=== PATIENT | female | born 1940 | race Caucasian/White ===

== ENCOUNTER 2017-06-11 08:20 | Inpatient (IN) | payer MEDICARE, BC ==
[~2017-06-11 08:20] MED LIST: Sodium Chloride 0.9% 1,000 ML BAG ONE; Sodium Chloride 0.9% 100 ML BAG ONE
--- NOTE | 2017-06-11 09:07 | RAD ---
PORTABLE CHEST: History: Fever. Comparison: 07-29-16 FINDINGS: There are chronic appearing lung changes with increased interstitial markings. Standing in the perip heral right lung is again seen and would be consistent with chronic parenchymal stranding. There are tiny nodules which are probably granuloma. No evidence of infiltrate or effusion. Heart size is upp er normal and stable. IMPRESSION: There are chronic appearing lung changes which appear stable. POS: [facility]
[2017-06-11 09:28] LABS: White Blood Cell (WBC) Count 18.3 thou/uL (4.8-10.8)
[2017-06-11 09:29] LABS: #Basophils 0.1 thou/uL (0.0-0.2); #Lymphocytes 2.3 thou/uL (1.20-3.40); #Monocytes 1.2 thou/uL (0.11-0.59); #Neutrophils 14.7 thou/uL (1.40-6.50); %Basophils 0.8 % (0.0-1.0); %Eosinophils 0.2 % (0.0-10.0); %Lymphocytes 12.5 % (21.0-51.0); %Monocytes 6.5 % (0.0-10.0); %Neutrophils 79.9 % (42.0-75.0); Hemoglobin 13.7 g/dL (12.0-16.0); Mean Corpuscular HGB CONC 33.6 g/dL (32.0-36.0); Mean Corpuscular Hemoglobin 35.3 pg (27.0-31.0); Mean Platelet Volume 6.7 fL (7.4-10.4); Platelet Count 280 thou/uL (130-400); RBC Distribution Width 12.4 % (11.5-14.5); Red Blood Cell (RBC) Count 3.88 mill/uL (4.20-5.40)
[2017-06-11 09:37] LABS: ALT (SGPT) 13 U/L (8-55); AST (SGOT) 16 U/L (5-34); Albumin 3.7 g/dL (3.4-4.8); Alkaline Phosphatase 161 U/L (40-150); Anion Gap 15 mmol/L (10-20); BUN (Urea Nitrogen) 13 mg/dL (9.8-20.1); Bilirubin, Total 0.8 mg/dL (0.2-1.2); Calc. Creatinine Clearance 0 mL/min (70-130); Calcium 9.1 mg/dL (7.8-10.44); Carbon Dioxide 27 mmol/L (23-31); Chloride 102 mmol/L (98-107); Estimated GFR-MDRD 58; Globulin 3.5 g/dL (2.4-3.5); Glucose 124 mg/dL (83-110); Potassium 4.4 mmol/L (3.5-5.1); Protein, Total 7.2 g/dL (6.0-8.3); Sodium 140 mmol/L (136-145)
[2017-06-11] MEDS ORDERED: cefTRIAXone\\ROCEPHIN 1 GM VIAL ONE (09:55)
[2017-06-11] MEDS ORDERED: Acetaminophen 500 MG TAB ONE ×2 (09:55→09:58)
[2017-06-11 11:22] LABS: Bilirubin Negative (Negative); Blood, Urine Large (Negative); Clarity Cloudy (Clear); Glucose, Urine (Dipstick) Negative (Negative); Leukocyte Moderate (Negative); Nitrite Negative (Negative); Protein, Urine (Dipstick) 100 mg/dL (Neg-Trace)
[2017-06-11 11:27] LABS: Squamous Epithelial 0-3 HPF (0-3)
[2017-06-11 11:28] LABS: Bacteria/HPF 4+ HPF (None Seen); RBC/HPF 21-50 HPF (0-3)
[2017-06-11 13:11] VITALS: BMI 19.3
[2017-06-11] MEDS ORDERED: Ondansetron ODT 4 MG TAB PO PRN (14:51)
[2017-06-11] MEDS ORDERED: Enoxaparin Sodium 30 MG/0.3 ML SYRINGE SC SCH (14:51)
[2017-06-11] MEDS ORDERED: Acetaminophen 325 MG TAB PO PRN (14:51)
[2017-06-11] MEDS ORDERED: Fioricet 325/50/40 mg Tablet PO PRN (15:41)
[2017-06-11] MEDS ORDERED: Artificial Tear Sol 15 ML BOT EA EYE PRN (15:42)
[2017-06-11] MEDS: Sodium Chloride 0.9% 1,000 ML IV SCH ×2 (16:34→23:36)
[2017-06-11] MEDS: Metoclopramide HCl 10 MG TAB PO SCH (18:16)
[2017-06-11] MEDS: Donepezil HCl 10 MG TAB PO SCH (20:57)
[2017-06-11] MEDS: Phenytoin 50 MG Chewable Tablet PO SCH (20:57)
[2017-06-11] MEDS: Benzonatate 100 MG CAP PO SCH (20:57)
[2017-06-11] MEDS: Gabapentin 300 MG CAP PO SCH (20:57)
[2017-06-11] MEDS: HYDROcodone/Acetaminophen 5/325 mg Tablet PO PRN (20:58)
[2017-06-11] MEDS ORDERED: Famotidine 20 MG TAB PO SCH (21:00)
[2017-06-11] MEDS ORDERED: Metoprolol Tartrate 25 MG TAB PO SCH (21:00)
--- NOTE | 2017-06-11 23:02 | HP ---
DATE OF ADMISSION: 06/11/2017 ATTENDING: Karissa Molina M.D. REASON FOR ADMISSION: Altered mental status. HISTORY OF PRESENT ILLNESS AND HOSPITAL COURSE: Ms. Spann is a 76-year-old female, a resident of [facility] with multiple chronic medical conditions. She was noted by the [facility] staff to be very confused this morning. Staff reports that patient does not know her name, does not recognize the staff and does not know where she was. She is very weak. She was also noted to have persistent cough for the last few days. Patient has history of dementia, but per baseline mental status, she is able to express her needs and oriented to person and place at least. Patient was sent to [facility] for further evaluation. When seen in the ER, patient's initial vital signs showed blood pressure 136/63 , pulse 88, respirations 24, temperature 100.4 oral, O2 saturation 98% at room air. Initial test in the ER showed significant leukocytosis at 18,000 with left shift. Urine with significant pyuria greater than 50- TNTC and microscopic hematuria 21-50 range. The patient's x-ray showed chronic appearing lung changes that appears stable, otherwise no evidence of infiltrate or infusion, heart appears in the upper normal limits, but stable. The patient was subsequently admitted for probable urosepsis. Medications given in the ER include: vancomycin 1 gram IV ceftriaxone 1 gram IV , Tylenol extra strength oral and was started on IV hydration. PAST MEDICAL HISTORY: Hypothyroid, chronic pain syndrome from chronic neck and shoulder pain, neck pain, chronic reflux, sleep apnea, seizure, pacemaker placement, hypertension, dyslipidemia, history of atrial fibrillation, history of dementia without significant behavioral issues, depression, anxiety, neuropathic pain, constipation, history of fracture of the wrist, history of sepsis, history of Dilantin toxicity, history of pneumonia, history of fracture of the femur, left. PAST SURGICAL HISTORY: 1. Appendicitis 1950 fibroid tumors. 2. Partial hysterectomy in 1969, cataract. 3. Left knee repair. 4. Vaginal repair. 5. Macrocytosis without anemia 6. Chronic atrial fibrillation 7. Gastroparesis. FAMILY HISTORY: Noncontributory. SOCIAL HISTORY: Patient is a chronic smoker. Denies alcohol or illicit drug use. Patient is . The patient's spouse is actively involved in patient' s care. ALLERGIES: PENICILLIN. MEDICATIONS: Dilantin 150 mg p.o. at bedtime, pantoprazole 40 mg p.o. q.a.m., Aricept 10 mg p.o. at bedtime, fluoxetine 10 mg p.o. daily, aspirin 325 mg p.o. daily, Francis thyroid 30 mg 1 tablet once daily, Artificial Tear p.r.n., gabapentin 300 mg 1 tablet at bedtime, amiodarone 200 mg p.o. daily, Unisom Sleepgels 50 mg 1 capsule at bedtime as needed, metoclopramide 5 mg p.o. at bedtime, [place] 5/325 mg b.i.d. REVIEW OF SYSTEMS: General: Reports fever, chills, general weakness, fatigue. HEENT: No acute visual changes or hearing changes. Respiratory: Reports productive cough, no bloody sputum. No pain with breathing. No wheezing. Cardiac: No chest pain, dyspnea on exertion, paroxysmal nocturnal dyspnea, or leg edema. GI: No nausea, vomiting, abdominal pain, diarrhea. Reports constipation. Genitourinary: No dysuria or hematuria. Positive incontinence of the bladder. Musculoskeletal: Reports chronic arthralgia on chronic pain medications. Neurologic: No recent seizures. No loss of consciousness. No new motor or sensory deficits. Psych: Positive depression and anxiety. No hallucinations. No suicidal thoughts, ideations or plans. OTHER LABS: Lactic acid 1.2. Chemistry: Sodium 140, potassium 4.4, BUN 13, creatinine 0.94, estimated GFR 58, glucose 124, calcium 9.1. Liver function tests within normal limits except for alkaline phosphatase 161, albumin 3.7, WBC 18.3, hemoglobin 13.7, hematocrit 40.8, MCV 105, platelets 280,000. PHYSICAL EXAMINATION: VITAL SIGNS: Temperature 97.3, pulse 73, respiration rate 18, O2 sats 94% at 2 liters per nasal cannula, blood pressure 120/76, weight 120 pounds and 0.8 ounces, height 5 feet 6 inches. GENERAL: The patient is awake, alert, oriented to person only. She thought she is in [facility]. Not in acute distress, comfortably resting in bed, not in acute distress. HEENT: Normocephalic, atraumatic. PERRL; intact EOM. Anicteric sclerae. Oral mucosa is moist. NECK: Supple. No LAD, no JVD, no bruit. CHEST: Normal excursion. Nonlabored breathing. HEART: Normal S1 and S2. No murmurs. ABDOMEN: Flat, soft, normoactive bowel sounds, nondistended, nontender. Negative CVA tenderness bilaterally. EXTREMITIES: Thin, atrophied, no edema, no cyanosis. NEURO: Nonfocal. DTRs 2+. Spontaneous speech. Able to answer simple questions with appropriateness. PSYCHIATRIC: Appears calm with appropriate demeanor and affect. SKIN: Dry. +skin tear on the lef anterior tibia, dry, no drainage, no exudates, covered with steri strips ASSESSMENT: A 76-year-old female, a long-term resident of the sn[facility], presented with altered mental status and persistent cough. The patient is admitted for inpatient management of probable Urosepsis and Acute Bronchitis. PLAN: 1. We will continue empiric IV antibiotic treatment therapy with Rocephin. Pending cultures. 2. Continue IVF hydration. 3. Continue current medications as modified per list. 4. Routine labs and/o xrays. Seizure precautions. 5. GI prophylaxis with PPI. DVT prophylaxis with Lovenox. 6. Further recommendations depending on the hospital course. 7. Plan is to obtain for appropriate antibiotic based on culture and sensitivity and possibly change to oral when deemed indicated. DISPOSITION: [facility]. CODE STATUS: Outpatient do not resuscitate. This was confirmed by . NADYA
[2017-06-12 05:47] LABS: Anion Gap 12 mmol/L (10-20); BUN (Urea Nitrogen) 9 mg/dL (9.8-20.1); Calc. Creatinine Clearance 57 mL/min (70-130); Carbon Dioxide 23 mmol/L (23-31); Chloride 110 mmol/L (98-107)
[2017-06-12 05:48] LABS: Calcium 8.3 mg/dL (7.8-10.44); Estimated GFR-MDRD 79; Glucose 97 mg/dL (83-110)
[2017-06-12 06:01] LABS: Sodium 141 mmol/L (136-145)
[2017-06-12 06:13] LABS: Mean Corpuscular Volume 107.6 fl (81.0-99.0)
[2017-06-12 06:14] LABS: #Basophils 0.1 thou/uL (0.0-0.2); #Eosinphils 0.1 thou/uL (0.0-0.7); #Monocytes 0.8 thou/uL (0.11-0.59); #Neutrophils 5.8 thou/uL (1.40-6.50); %Basophils 1.6 % (0.0-1.0); %Eosinophils 1.7 % (0.0-10.0); %Lymphocytes 22.6 % (21.0-51.0); %Monocytes 8.8 % (0.0-10.0); %Neutrophils 65.3 % (42.0-75.0); Hemoglobin 11.8 g/dL (12.0-16.0); Mean Corpuscular Hemoglobin 35.5 pg (27.0-31.0); Mean Platelet Volume 6.5 fL (7.4-10.4); Platelet Count 258 thou/uL (130-400); RBC Distribution Width 12.3 % (11.5-14.5); Red Blood Cell (RBC) Count 3.33 mill/uL (4.20-5.40); White Blood Cell (WBC) Count 8.9 thou/uL (4.8-10.8)
[2017-06-12 06:16] LABS: Hypochromia SLIGHT = 6-15 cells (100X) (0-5/hpf); Macrocytosis SLIGHT = 6-15 cells (100X) (0-5/hpf)
[2017-06-12 06:17] LABS: MDiff Complete? YES; PLT Morphology Comment Appears Adequate; RBC Morphology ABNORMAL
[2017-06-12] MEDS: Sodium Chloride 0.9% 1,000 ML IV SCH ×2 (07:41→07:43)
[2017-06-12] MEDS: Sodium Chloride 0.45% 1,000 ML IV SCH ×2 (07:45→23:11)
[2017-06-12] MEDS ORDERED: Digoxin 0.125 MG TAB PO SCH (09:00)
[2017-06-12] MEDS ORDERED: Metoclopramide HCl 10 MG TAB PO SCH (09:00)
[2017-06-12] MEDS ORDERED: Folic Acid 1 MG TAB PO SCH (09:00)
[2017-06-12] MEDS ORDERED: Cyanocobalamin (Vitamin B-12) 1,000 MCG TAB PO SCH (09:00)
[2017-06-12] MEDS ORDERED: Meloxicam 7.5 MG TAB PO SCH (09:00)
[2017-06-12] MEDS: cefTRIAXone\\ROCEPHIN 1 GM in Sodium Chloride 0.9% 100 ML IVPB SCH (09:14)
[2017-06-12] MEDS: Benzonatate 100 MG CAP PO SCH ×3 (09:16→21:03)
[2017-06-12] MEDS: Aspirin 325 mg Enteric Coated Tablet PO SCH (09:16)
[2017-06-12] MEDS: FLUoxetine HCl 10 MG CAP PO SCH (09:16)
[2017-06-12] MEDS: Enoxaparin Sodium 30 MG/0.3 ML SYRINGE SC SCH (09:17)
--- NOTE | 2017-06-12 15:27 | RAD ---
PORTABLE CHEST ONE VIEW: 06/12/2017 11:52 a.m. HISTORY: Wheezing. COMPARISON: Exam from the previous day. FINDINGS: Chronic appearing changes in the lung white are again seen. The heart size is stable. No lobar co nsolidation, pneumothorax, rich pulmonary edema, or pleural effusion is seen. IMPRESSION: No acute process. POS: [facility]
[2017-06-12] MEDS: Metoclopramide HCl 10 MG TAB PO SCH (17:28)
[2017-06-12] MEDS: HYDROcodone/Acetaminophen 5/325 mg Tablet PO PRN (21:01)
[2017-06-12] MEDS: Phenytoin 50 MG Chewable Tablet PO SCH (21:03)
[2017-06-12] MEDS: Gabapentin 300 MG CAP PO SCH (21:03)
[2017-06-12] MEDS: Donepezil HCl 10 MG TAB PO SCH (21:03)
[2017-06-13] MEDS: HYDROcodone/Acetaminophen 5/325 mg Tablet PO PRN ×2 (08:00→21:20)
[2017-06-13] MEDS: Aspirin 325 mg Enteric Coated Tablet PO SCH (08:01)
[2017-06-13] MEDS: Nicotine 21 MG PATCH TD SCH (08:01)
[2017-06-13] MEDS: Benzonatate 100 MG CAP PO SCH ×3 (08:01→21:14)
[2017-06-13] MEDS: FLUoxetine HCl 10 MG CAP PO SCH (08:01)
[2017-06-13] MEDS: cefTRIAXone\\ROCEPHIN 1 GM in Sodium Chloride 0.9% 100 ML IVPB SCH (08:02)
[2017-06-13] MEDS: Enoxaparin Sodium 30 MG/0.3 ML SYRINGE SC SCH (08:02)
[2017-06-13] MEDS: Sodium Chloride 0.45% 1,000 ML IV SCH ×2 (12:10→23:56)
[2017-06-13] MEDS: Metoclopramide HCl 10 MG TAB PO SCH (17:30)
[2017-06-13] MEDS: Phenytoin 50 MG Chewable Tablet PO SCH (21:14)
[2017-06-13] MEDS: Donepezil HCl 10 MG TAB PO SCH (21:14)
[2017-06-13] MEDS: Gabapentin 300 MG CAP PO SCH (21:14)
[2017-06-14] MEDS: Nicotine 21 MG PATCH TD SCH (08:05)
[2017-06-14] MEDS: Aspirin 325 mg Enteric Coated Tablet PO SCH (08:05)
[2017-06-14] MEDS: FLUoxetine HCl 10 MG CAP PO SCH (08:05)
[2017-06-14] MEDS: Enoxaparin Sodium 30 MG/0.3 ML SYRINGE SC SCH (08:05)
[2017-06-14] MEDS: cefTRIAXone\\ROCEPHIN 1 GM in Sodium Chloride 0.9% 100 ML IVPB SCH (08:05)
[2017-06-14] MEDS: Benzonatate 100 MG CAP PO SCH (08:05)
[2017-06-14] MEDS ORDERED: Metoprolol Tartrate 5 MG/5 ML VIAL IVP SCH (10:00)
--- NOTE | 2017-06-14 10:35 | RAD ---
PORTABLE CHEST: Date: 06/14/17 HISTORY: Tachycardia. COMPARISON: 06/11/17. FINDINGS: Increased interstitial markings again noted. There is some stranding in the peripheral right lung wh ich is unchanged and is apparently a stable finding. No evidence of new infiltrate or effusion. IMPRESSION: Stable chest findings without evidence of acute process. POS: [facility]
[2017-06-14 10:39] LABS: Anion Gap 14 mmol/L (10-20); BUN (Urea Nitrogen) Less than 4 mg/dL (9.8-20.1); Calc. Creatinine Clearance 59 mL/min (70-130); Calcium 8.8 mg/dL (7.8-10.44); Carbon Dioxide 25 mmol/L (23-31); Chloride 106 mmol/L (98-107); Estimated GFR-MDRD 81; Glucose 156 mg/dL (83-110); Potassium 3.4 mmol/L (3.5-5.1); Sodium 142 mmol/L (136-145)
[2017-06-14 10:45] LABS: CKMB 1.1 ng/mL (0-6.6); Troponin I Less than 0.010 ng/mL (< 0.028)
[2017-06-14 10:50] LABS: #Basophils 0.1 thou/uL (0.0-0.2); #Monocytes 0.9 thou/uL (0.11-0.59); #Neutrophils 8.8 thou/uL (1.40-6.50); %Basophils 0.9 % (0.0-1.0); %Eosinophils 0.4 % (0.0-10.0); %Lymphocytes 9.1 % (21.0-51.0); %Monocytes 7.9 % (0.0-10.0); %Neutrophils 81.6 % (42.0-75.0); Hemoglobin 12.1 g/dL (12.0-16.0); Mean Corpuscular HGB CONC 34.3 g/dL (32.0-36.0); Mean Corpuscular Hemoglobin 35.9 pg (27.0-31.0); Mean Corpuscular Volume 104.7 fl (81.0-99.0); Mean Platelet Volume 6.8 fL (7.4-10.4); Platelet Count 288 thou/uL (130-400); RBC Distribution Width 12.3 % (11.5-14.5); Red Blood Cell (RBC) Count 3.37 mill/uL (4.20-5.40); White Blood Cell (WBC) Count 10.7 thou/uL (4.8-10.8)
[2017-06-14 10:51] LABS: MDiff Complete? YES; Polychromasia SLIGHT = 2-3 cells (100X) (0-2/hpf)
[2017-06-14] MEDS ORDERED: Digoxin 0.5 MG/2 ML AMP ONE (11:21)
[2017-06-14] MEDS ORDERED: Digoxin 0.5 MG/2 ML AMP SLOW IVP SCH (11:30)
[2017-06-14 11:54] VITALS: BP 132/92; TEMP 98
[2017-06-14] MEDS ORDERED: Sodium Chloride 0.45% 1,000 ML BAG ONE (13:25)
[2017-06-14] MEDS ORDERED: Sodium Chloride 0.9% 1,000 ML BAG ONE (13:25)
[2017-06-14] MEDS ORDERED: Potassium Chloride 10 MEQ TAB PO SCH (17:00)
== END 2017-06-14 13:26 | disposition short-term general hospital (02) | DRG 690 ==
LOC: MADERS 08:20 → MADMS 12:04
PROVIDERS: ADMIT Family Medicine; ATTEND Family Medicine
DX: N39.0 Urinary tract infection, site not specified (principal); I48.2 Chronic atrial fibrillation; F03.90 Unspecified dementia, unspecified severity, without behavioral disturbance, psychotic disturbance, mood disturbance, and anxiety; G40.909 Epilepsy, unspecified, not intractable, without status epilepticus; E03.9 Hypothyroidism, unspecified; I10 Essential (primary) hypertension; E78.5 Hyperlipidemia, unspecified; F17.210 Nicotine dependence, cigarettes, uncomplicated; J20.9 Acute bronchitis, unspecified; Z87.81 Personal history of (healed) traumatic fracture; Z88.0 Allergy status to penicillin; Z95.0 Presence of cardiac pacemaker
CPT/HCPCS: 36415; 71010; 71020; 80048; 80053; 80185; 81003; 81015; 82553; 83605; 84443; 84484; 85025; 87040; 87077; 87086; 87186; A4216; J0696; J1160; J1650; J3370; J7050; J7620

== ENCOUNTER 2018-10-30 21:34 | Emergency (ER) | payer MEDICARE, BC ==
[2018-10-30] MEDS ORDERED: Adacel (T-DAP) 0.5 ML SYRINGE ONE (21:46)
== END 2018-10-30 22:53 ==
LOC: MADERS 21:34
DX: S81.811A Laceration without foreign body, right lower leg, initial encounter (principal); E03.9 Hypothyroidism, unspecified; I10 Essential (primary) hypertension; K21.9 Gastro-esophageal reflux disease without esophagitis; I48.91 Unspecified atrial fibrillation; F03.90 Unspecified dementia, unspecified severity, without behavioral disturbance, psychotic disturbance, mood disturbance, and anxiety; G47.30 Sleep apnea, unspecified; Z79.891 Long term (current) use of opiate analgesic; Z79.82 Long term (current) use of aspirin; Z79.899 Other long term (current) drug therapy; X58.XXXA Exposure to other specified factors, initial encounter
CPT/HCPCS: 90471; 90715